=== PATIENT | female | born 1990 | race Caucasian/White ===

== ENCOUNTER 2016-05-31 13:00 | Emergency (ER) | payer OTHER ==
[~2016-05-31] VITALS: Ht 167.6 cm; Wt 81.6 kg
[~2016-05-31 13:00] MED LIST: DUONEB 3 MG/3 ML3 ML INH
--- NOTE | 2016-05-31 13:25 | ED GI/GU/ABDOMINAL COMPLAINT ---
History of Present Illness General Chief Complaint: Nausea, Vomiting, Diarrhea Stated Complaint: NVD Source: patient, old records Exam Limitations: no limitations Vital Signs & Intake/Output Vital Signs & Intake/Output Vital Signs Date Time Temp Pulse Resp B/P Pulse O2 O2 Flow FiO2 Ox Delivery Rate 05/31 1302 97.9 105 20 118/76 100 Room Air Allergies Coded Allergies: peanut (Severe, DIFFICULTY BREATHING 05/31/16) Uncoded Allergies: TREE NUTS (Severe, DIFFICULTY BREATHING 08/15/13) Reconcile Medications Albuterol Sulfate (Ventolin Hfa) 90 MCG HFA.AER.AD 2 PUF INH Q4-6 PRN PRN BREATHING PROBLEMS (Reported) Dicyclomine Hydrochloride (Bentyl) 10 MG CAPSULE 1 TAB PO TID PRN ABDOMINAL CRAMPING Ondansetron (Zofran Odt) 4 MG TAB.RAPDIS 1 TAB SL TID PRN NAUSEA Triage Note: PT TO ED C/O N/V/D, ABD PAIN SINCE 0830 THIS AM. STATES SHE WOKE UP WITH IT. Triage Nurses Notes Reviewed? yes ? N Is pt currently ? No HPI: 26-year-old female here with complaints of sudden onset nausea vomiting diarrhea and abdominal pain. Multiple episodes of nausea and vomiting, crampy diffuse abdominal pain. Started at a 8:45 this morning, woke her from sleep. 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 She has chills with no fever. No previous abdominal surgery or previous abdominal problems. She has history of lymphoma and is currently 3 years cancer free. Not in any current treatment. No treatment thus far. No modifying factors. sHe complains of increased thirst and dehydration. Past History Travel History Traveled to [place] past 21 day No Medical History Any Pertinent Medical History? see below for history Cancer(s): LYMPHOMA Surgical History Surgical History: non-contributory Psychosocial History What is your primary language Bermudian Tobacco Use: Never used ETOH Use: denies use Illicit Drug Use: denies illicit drug use Family History Hx Contributory? No Review of Systems Review of Systems Constitutional: Reports: see HPI. EENTM: Reports: no symptoms. Respiratory: Reports: no symptoms. Cardiovascular: Reports: no symptoms. GI: Reports: see HPI. Genitourinary: Reports: no symptoms. Musculoskeletal: Reports: no symptoms. Skin: Reports: no symptoms. Neurological/Psychological: Reports: no symptoms. Hematologic/Endocrine: Reports: no symptoms. Immunologic/Allergic: Reports: no symptoms. All Other Systems: Reviewed and Negative Physical Exam Physical Exam Respiratory: normal breath sounds, chest non-tender, no respiratory distress Cardiovascular: regular rate/rhythm Gastrointestinal: normal bowel sounds, soft, non-tender, no organomegaly Comments: Well-developed well-nourished no apparent distress. HEENT: Atraumatic, extraocular motion intact Neck: Supple, no lymphadenopathy Back: Nontender Respiratory: No respiratory distress Extremities: No edema, full range of motion Neuro: Alert and oriented x3 Psych: Mood affect normal, normal memory normal judgment. Skin: Warm and dry, mildly pale appearing, no rashes present Core Measures ACS in differential dx? No Severe Sepsis Present: No Septic Shock Present: No Progress Differential Diagnosis: AAA, AMI, appendicitis, biliary colic, bowel obstruction , colon cancer, cholecystitis, diverticulitis, ectopic , endometritis, esophageal varices, gastritis, hepatitis, hernia, hemorrhoids, ischemic bowel, inflamm bowel dis, intrauterine , kidney stone, Ema-Lito tear, ovarian cyst, ovarian torsion, pancreatitis, PID/cervicitis, peptic ulcer, PUD/ GERD, perforated viscous, SBO, threatened AB, UTI/pyelo Plan of Care: Current Medications Sig/Prasanna Start time Last Medication Dose Stop Time Status Admin Ketorolac 30 MG ONCE ONE 05/31 1330 UNVr Tromethamine 05/31 1331 (Toradol) Ondansetron HCl 4 MG ONCE ONE 05/31 1330 UNVr (Zofran) 05/31 1331 Sodium Chloride 1,000 ML BOLUS ONE 05/31 1330 UNVr (Normal Saline 0.9%) 05/31 1429 Initial ED EKG: none Comments: Signs and symptoms consistent with gastroenteritis. Patient was reevaluated multiple times and each time she is improving. She was given 30 mg of Toradol IV, 2 L of fluids and 4 mg of Zofran IV. Upon final reevaluation she was feeling well, abdomen is nontender and soft, she feels well and is to be discharged home. Recommend continuing clears progressing to a bland diet over the next 12-24 hours. She'll return with worsening symptoms. Departure Departure Disposition: HOME OR SELF CARE Condition: Stable Clinical Impression Primary Impression: Gastroenteritis Referrals: UNKNOWN (PCP/Family) Additional Instructions: Clear liquid diet for the next 12-24 hours and advance as tolerated. Tylenol and Motrin for abdominal pain, Bentyl for abdominal cramping, takes Zofran as needed for nausea. Return with worsening abdominal pain nausea vomiting fever flulike illness or inability to keep in fluids Departure Forms: Customer Survey General Discharge Information Prescriptions: Current Visit Scripts Dicyclomine Hydrochloride (Bentyl) 1 TAB PO TID PRN ABDOMINAL CRAMPING #9 Ondansetron (Zofran Odt) 1 TAB SL TID PRN NAUSEA #15 TAB
[2016-05-31] MEDS ORDERED: VENTOLIN HFA18 GM INH (14:04)
[2016-05-31] MEDS ORDERED: BENTYL10 M1 PO (15:27)
[2016-05-31] MEDS ORDERED: ZOFRAN ODT4 M1 SL (15:27)
[2016-05-31 15:35] VITALS: BP 105/58
== END 2016-05-31 15:39 ==
LOC: ERH 13:00
DX: K52.9 Noninfective gastroenteritis and colitis, unspecified (principal)
CPT/HCPCS: 96374; 96375; J1885; J2405